=== PATIENT | female | born 1990 | race African-American/Black ===

== ENCOUNTER 2023-04-27 05:40 | Observation (INO) | payer MEDICAID, OTHER ==
[~2023-04-27] VITALS: Ht 160 cm; Wt 72.6 kg
[2023-04-27 06:42] LABS: Urine Bacteria FEW /hpf (None Seen); Urine Blood Negative /uL (Negative); Urine Clarity HAZY (Clear); Urine Protein, UAD Negative (Negative); Urine Specific Gravity 1.016 (1.001-1.035); Urine Urobilinogen Normal (Negative); Urine WBC 1 /hpf (0 - 5)
[2023-04-27 06:49] LABS: Urine Color Yellow (Yellow)
[2023-04-27 07:39] LABS: Vaginal Epithelial Cells Moderate
[2023-04-27 07:40] LABS: Vaginal Bacteria Few
[2023-04-27 07:41] LABS: Vaginal Clue Cells None Seen; Vaginal Trichomonas Not Present
[2023-04-27] MEDS ORDERED: PREN-96 PO (07:57)
[2023-04-27] MEDS ORDERED: NITR-87 PO (07:58)
== END 2023-04-27 08:10 | disposition home or self-care (01) ==
LOC: LDRP 05:40
PROVIDERS: ADMIT Obstetrics & Gynecology; ATTEND Obstetrics & Gynecology
DX: O26.892 Other specified pregnancy related conditions, second trimester (principal); R10.9 Unspecified abdominal pain; Z3A.21 21 weeks gestation of pregnancy; Z88.0 Allergy status to penicillin
CPT/HCPCS: 59025; 76815; 81001; 81002; 87210; 94760; G0378

== ENCOUNTER 2023-07-10 19:25 | Observation (INO) | payer MEDICAID ==
[~2023-07-10] VITALS: Ht 160 cm; Wt 81.6 kg
[~2023-07-10 19:25] MED LIST: NITR-87 PO; PREN-96 PO
[2023-07-10] MEDS: ACETAMINOPHEN 325 MG TAB PO ONE (20:46)
== END 2023-07-10 21:14 | disposition home or self-care (01) ==
LOC: LDRP 19:25
PROVIDERS: ADMIT Obstetrics & Gynecology; ATTEND Obstetrics & Gynecology
DX: O36.8130 Decreased fetal movements, third trimester, not applicable or unspecified (principal); O26.893 Other specified pregnancy related conditions, third trimester; R51.9 Headache, unspecified; Z3A.32 32 weeks gestation of pregnancy; Z88.0 Allergy status to penicillin; W18.39XA Other fall on same level, initial encounter; Y93.89 Activity, other specified; Y92.89 Other specified places as the place of occurrence of the external cause; Y99.8 Other external cause status
CPT/HCPCS: 59025; 76818; 81002; 94760; G0378

== ENCOUNTER 2023-08-29 17:51 | Observation (INO) | payer MEDICAID ==
[~2023-08-29] VITALS: Ht 160 cm; Wt 88.0 kg
[2023-08-29 19:53] LABS: Fern Testing Negative
[2023-08-29 20:28] LABS: Vaginal Bacteria Moderate; Vaginal Trichomonas Not Present
[2023-08-29 20:29] LABS: Vaginal Epithelial Cells Many
[2023-08-29 20:30] LABS: Vaginal Clue Cells Few
[2023-08-29] MEDS ORDERED: MET500T PO (20:56)
== END 2023-08-29 21:11 | disposition home or self-care (01) ==
LOC: LDRP 17:51
PROVIDERS: ADMIT Obstetrics & Gynecology; ATTEND Obstetrics & Gynecology
DX: O23.593 Infection of other part of genital tract in pregnancy, third trimester (principal); B96.89 Other specified bacterial agents as the cause of diseases classified elsewhere; O62.9 Abnormality of forces of labor, unspecified; O26.893 Other specified pregnancy related conditions, third trimester; R10.9 Unspecified abdominal pain; Z3A.39 39 weeks gestation of pregnancy; Z88.0 Allergy status to penicillin
CPT/HCPCS: 59025; 76815; 81002; 87210; 94760; G0378; Q0114

== ENCOUNTER 2023-09-02 07:20 | Inpatient (IN) | payer MEDICAID ==
[~2023-09-02] VITALS: Ht 160 cm; Wt 88.0 kg
[~2023-09-02 07:20] MED LIST changes: +MET500T PO; -NITR-87 PO
[2023-09-02] MEDS ORDERED: LIDOCAINE 2%HCL (LOCAL ANESTH.) INJ 20ML MDV IJ PRN (07:45)
[2023-09-02] MEDS ORDERED: TERBUTALINE SULFATE 1 MG/ML 1ML VIAL SC PRN (07:45)
[2023-09-02] MEDS ORDERED: BUTORPHANOL TARTRATE 2 MG/1 ML VIAL IV PRN ×2 (07:45)
[2023-09-02 08:26] LABS: Basophils # (auto) 0 10 ^3/uL (0-0.2); Basophils % (auto) 0.3 % (0.0-2.0); Eosinophils # (auto) 0.1 10 ^3/uL (0-0.8); Eosinophils % (auto) 1.1 % (0.0-7.0); Lymphocytes # (auto) 1.5 10 ^3/uL (0.4-5.4); Lymphocytes % (auto) 20.4 % (10.0-50.0); Mean Corpuscular Hemoglobin 31.9 pg (28.0-32.0); Mean Corpuscular Hgb Conc. 34.3 g/dL (32.0-36.0); Mean Corpuscular Volume 93.1 fL (80.0-100.0); Monocytes # (auto) 0.7 10 ^3/uL (0-1.3); Monocytes % (auto) 10.3 % (0.0-12.0); Neutrophils # (auto) 4.9 10 ^3/uL (1.6-8.6); Neutrophils % (auto) 67.9 % (37.0-80.0); Nucleated Red Blood Cells % 0.1 %; Red Blood Cells 4.08 10^6/uL (4.0-5.20); Red Cell Distribution Width 13.8 % (11.8-14.3); White Blood Cell 7.2 10^3/uL (4.4-10.8)
[2023-09-02 08:42] LABS: INR 0.93 (0.9-1.15); Partial Thromboplastin Time 25.9 SEC (24.5-34.5); Prothrombin Time 9.9 sec (9.3-11.8)
[2023-09-02 08:44] LABS: Alanine Aminotransferase 23 U/L (7-40); Albumin 3.6 g/dL (3.2-4.8); Alkaline Phosphatase 171 U/L (46-116); Aspartate Aminotransferase 22 U/L (13-40); BUN/Creatinine Ratio 13.6 (10.0-20.0); Blood Urea Nitrogen 8 mg/dL (9-23); Calcium 9.4 mg/dL (8.5-10.1); Chloride 110 mmol/L (98-107); Glucose 80 mg/dL (74-106); Potassium 3.7 mmol/L (3.5-5.1); Sodium 136 mmol/L (136-145)
[2023-09-02 08:45] LABS: Bilirubin, Total 0.6 mg/dL (0.2-1.0); Total Protein 5.9 g/dL (5.7-8.2)
[2023-09-02 08:49] LABS: Urine Bacteria FEW /hpf (None Seen); Urine Blood 2+ /uL (Negative); Urine Budding Yeast OCCASIONAL /hpf (None Seen); Urine Protein, UAD 1+ (Negative); Urine Specific Gravity 1.013 (1.001-1.035); Urine Urobilinogen Normal (Negative); Urine WBC 17 /hpf (0 - 5); Urine pH 6.5 (5.0-9.0)
[2023-09-02 08:51] LABS: Urine Clarity Hazy (Clear); Urine Color Yellow (Yellow)
[2023-09-02 08:54] LABS: Anion Gap 10 (5-15); Carbon Dioxide 16 mmol/L (20-30)
[2023-09-02 08:56] LABS: Fern Testing Positive
[2023-09-02 09:02] LABS: Amphetamine Screen, Urine Neg (NEGATIVE); Barbiturate Scree,Urine Neg (NEGATIVE); Benzodiazephine Screen, Urine Neg (NEGATIVE)
[2023-09-02 09:03] LABS: Cannabinoid Screen, Urine Neg (NEGATIVE); Cocaine Screen, Urine Neg (NEGATIVE); Opiate Scree,Urine Neg (NEGATIVE); Phencyclidine Screen, Urine Neg (NEGATIVE)
[2023-09-02] MEDS ORDERED: LACT. RINGERS/OXYTOCIN 20UNITS 1,000 ML IV SCH (10:15)
[2023-09-02] MEDS ORDERED: ePHEDrine SULFATE 50 MG/ML AMP IV ONE (10:45)
[2023-09-02] MEDS ORDERED: NALOXONE HCL 0.4 MG/ML VIAL IV ONE (10:45)
[2023-09-02] MEDS: DERMOPLAST 60ML BOTTLE TOP PRN (11:01)
[2023-09-02] MEDS: PHISODERM TOP SOLN 240ML BTL TOP PRN (11:01)
[2023-09-02] MEDS: WITCH HAZEL-GLYCERIN PAD TOP PRN (11:01)
[2023-09-02] MEDS ORDERED: METHYLERGONOVINE MALEATE 0.2 MG/ML AMP IM PRN (14:45)
[2023-09-02] MEDS: METHYLERGONOVINE MALEATE 0.2 MG/ML AMP IM ONE ×2 (15:04→19:25)
[2023-09-02] MEDS: miSOPROStol 100 mcg TAB PO STA (15:04)
[2023-09-02] MEDS: miSOPROStol 100 mcg TAB PR PRN (15:05)
[2023-09-02] MEDS: LACT. RINGERS/OXYTOCIN 20UNITS 500 ML IV ONE ×2 (15:06→19:31)
[2023-09-02] MEDS: ROPIVACAINE HCL 200 ML ONE (15:08)
[2023-09-02] MEDS: LACTATED RINGER'S 1,000 ML IV SCH (15:09)
[2023-09-02] MEDS: CLINDAMYCIN 900MG IV 50 ML IV SCH (17:45)
[2023-09-02 19:20] VITALS: BP 123/67; PULSE 66; RESP 17; TEMP 98.4; O2SAT 97
[2023-09-02] MEDS: LACTATED RINGER'S 1,000 ML IV ONE (19:26)
[2023-09-02] MEDS: fentaNYL CITRATE 100 MCG/2 ML VL IV ONE (19:31)
[2023-09-02] MEDS: ACETAMINOPHEN 325 MG TAB PO PRN (21:29)
[2023-09-02] MEDS ORDERED: ceFAZolin 1GM/50ML 50 ML IV SCH (22:00)
[2023-09-02] MEDS: DOCUSATE SOD 100 MG CAP PO SCH (22:05)
[2023-09-02] MEDS: IBUPROFEN 600 MG TAB PO PRN (22:47)
[2023-09-02 23:00] VITALS: BP 126/60; PULSE 85; RESP 16; TEMP 98.3; O2SAT 96
[2023-09-03 03:00] VITALS: BP 111/61; PULSE 79; RESP 16; TEMP 98.1; O2SAT 98
[2023-09-03 07:30] VITALS: BP 110/64; PULSE 80; RESP 16; TEMP 97.9; O2SAT 98
[2023-09-03 11:30] VITALS: BP 118/65; PULSE 82; RESP 16; TEMP 98.2; O2SAT 98
[2023-09-05 05:07] LABS: RPR Non Reactive (Non Reactive)
== END 2023-09-03 15:20 | disposition home or self-care (01) | DRG 560 ==
LOC: LDRP 07:20 → UNDOADMOB 07:20 → OBSVTOIN 07:35 → INTOOBSV 07:35 → LDRP 07:48 → OBSVTOIN 07:48
PROVIDERS: ADMIT Obstetrics & Gynecology; ATTEND Obstetrics & Gynecology
PROC: 10E0XZZ Delivery of Products of Conception, External Approach (ICD-10-PCS; principal; 2023-09-02)
PROC: 0KQM0ZZ Repair Perineum Muscle, Open Approach (ICD-10-PCS; 2023-09-02)
PROC: 3E0R3BZ Introduction of Anesthetic Agent into Spinal Canal, Percutaneous Approach (ICD-10-PCS; 2023-09-02)
PROC: 00HU33Z Insertion of Infusion Device into Spinal Canal, Percutaneous Approach (ICD-10-PCS; 2023-09-02)
DX: O70.1 Second degree perineal laceration during delivery (principal); Z37.0 Single live birth; Z3A.39 39 weeks gestation of pregnancy; Z88.0 Allergy status to penicillin
CPT/HCPCS: 36415; 59025; 59409; 62282; 80053; 80307; 81001; 81002; 84112; 85025; 85610; 85730; 86592; 86850; 86900; 86901; 94760; 94762; 96360; 96361; 96365; 96366; 96372; G0378; J2590; J3490